=== PATIENT | male | born 1965 | race Caucasian/White ===

== ENCOUNTER 2019-05-12 14:43 | Inpatient (IN) | payer BC ==
[2019-05-12] MEDS ORDERED: MORPHINE 4 MG/ML SYR ONE (15:49)
[2019-05-12] MEDS ORDERED: ONDANSETRON 4 MG/2 ML VIAL ONE (15:50)
[2019-05-12] MEDS ORDERED: NA CHLORIDE 0.9% 1,000 ML ONE (15:50)
[2019-05-12 16:34] LABS: Basophils % 0.4 % (0-1.3); Lymphocytes % 12.8 % (15.3-44.8); MPV 8.8 fL (7.6-11.3); RBC Red Blood Cell Count 5.68 M/uL (4.33-5.43)
[2019-05-12 16:51] LABS: Albumin 3.8 g/dL (3.4-5.0); Bilirubin Direct 0.2 mg/dL (0-0.2); Bilirubin Total 0.7 mg/dL (0.2-1.0); Potassium 3.8 mmol/L (3.5-5.1); Protein, Total 7.3 g/dL (6.4-8.2)
--- NOTE | 2019-05-12 17:53 | RAD REPORT ---
EXAM DESCRIPTION: CT - Abdomen Pelvis W Contrast - 05/12/2019 5:29 pm CLINICAL HISTORY: Abdominal pain vomiting and diarrhea COMPARISON: none. TECHNIQUE: Computed axial tomography of the abdomen pelvis was obtained. 100 cc Isovue-300 was admin istered intravenously. Oral contrast was not requested which limits evaluation of bowel. All CT scans are performed using dose optimization technique as appropriate and may include automated exposure control or mA/KV adjustment according to patient size. FINDINGS: Fatty liver Spleen, pancreas, adrenal and kidneys appear unremarkable. Small right renal cyst There is no evidence of diverticulitis. Normal appendix Small inguinal hernias contain fat Marked thickening of the wall of the descending colon. Moderate thickening of the wall of the transve rse colon. Marked thickening of the wall of the ascending colon IMPRESSION: Marked colitis
--- NOTE | 2019-05-12 18:15 | EDPHYS ---
Physician Documentation [facility] Name: Christiano Kinsey Age: 54 yrs Sex: Male : 1965 Arrival Date: 05/12/2019 Time: 14:43 Bed 18 Private MD: ED Physician Rivera Lozano HPI: 05/12 15:46 This 54 yrs old Male presents to ER via Ambulatory with complaints of kb Dehydration. 15:47 The patient presents to the emergency department with nausea, vomiting, diarrhea, kb abdominal pain. Onset: The symptoms/episode began/occurred 2 day(s) ago. Possible causes: "stomach virus". The symptoms are aggravated by nothing. The symptoms are alleviated by nothing. Associated signs and symptoms: Pertinent positives: abdominal pain, diarrhea, nausea, vomiting. Severity of symptoms: At their worst the symptoms were moderate in the emergency department the symptoms are unchanged. The patient has not experienced similar symptoms in the past. The patient has not recently seen a physician. Pt reports n/v/d and abd cramps for 2 days. States "I'm prone to stomach viruses so anytime one is in the area I get it.". Historical: - Allergies: 14:50 PENICILLINS; la1 - PMHx: 14:50 None; la1 - Immunization history:: Adult Immunizations up to date. - Social history:: Smoking status: Patient/guardian denies using tobacco. - Ebola Screening: : No symptoms or risks identified at this time. ROS: 15:47 Constitutional: Negative for fever, chills, and weight loss, Cardiovascular: Negative kb for chest pain, palpitations, and edema, Respiratory: Negative for shortness of breath, cough, wheezing, and pleuritic chest pain, Back: Negative for injury and pain, : Negative for injury, bleeding, discharge, and swelling, MS/Extremity: Negative for injury and deformity, Skin: Negative for injury, rash, and discoloration, Neuro: Negative for headache, weakness, numbness, tingling, and seizure. 15:47 Abdomen/GI: Positive for nausea, vomiting, and diarrhea, abdominal cramps. Exam: 15:47 Constitutional: This is a well developed, well nourished patient who is awake, alert, kb and in no acute distress. Head/Face: Normocephalic, atraumatic. Neck: Trachea midline, no thyromegaly or masses palpated, and no cervical lymphadenopathy. Supple, full range of motion without nuchal rigidity, or vertebral point tenderness. No Meningismus. Chest/axilla: Normal chest wall appearance and motion. Nontender with no deformity. No lesions are appreciated. Cardiovascular: Regular rate and rhythm with a normal S1 and S2. No gallops, murmurs, or rubs. Normal PMI, no JVD. No pulse deficits. Respiratory: Lungs have equal breath sounds bilaterally, clear to auscultation and percussion. No rales, rhonchi or wheezes noted. No increased work of breathing, no retractions or nasal flaring. Back: No spinal tenderness. No costovertebral tenderness. Full range of motion. Skin: Warm, dry with normal turgor. Normal color with no rashes, no lesions, and no evidence of cellulitis. MS/ Extremity: Pulses equal, no cyanosis. Neurovascular intact. Full, normal range of motion. Neuro: Awake and alert, GCS 15, oriented to person, place, time, and situation. Cranial nerves II-XII grossly intact. Motor strength 5/5 in all extremities. Sensory grossly intact. Cerebellar exam normal. Normal gait. 15:47 Abdomen/GI: Inspection: abdomen appears normal, Bowel sounds: normal, in all quadrants, Palpation: soft, in all quadrants, mild abdominal tenderness, in all quadrants. Vital Signs: 14:51 Resp 16; Temp 98.3; Pulse Ox 98% on R/A; Weight 127.01 kg; Height 6 ft. 2 in. (187.96 la1 cm); 14:52 BP 151 / 100; Pulse 87; la1 15:15 BP 124 / 64; Pulse 70; Resp 20; Temp 98.4; Pulse Ox 100% ; Pain 8/10; vc 16:00 BP 131 / 83; Pulse 75; Pulse Ox 94% ; Pain 8/10; vc 16:06 BP 145 / 78; Pulse 78; Pulse Ox 95% on R/A; vc 17:00 BP 147 / 80; Pulse 63; Pulse Ox 97% ; Pain 5/10; vc 18:00 BP 149 / 76; Pulse 67; Temp 98.7; Pulse Ox 96% ; Pain 7/10; vc 19:00 BP 146 / 81; Pulse 75; Resp 18; Pulse Ox 95% ; wh 20:00 BP 124 / 81; Pulse 68; Resp 18; Pulse Ox 95% ; wh 14:51 Body Mass Index 35.95 (127.01 kg, 187.96 cm) la1 MDM: 15:14 Patient medically screened. kb 15:45 Data reviewed: vital signs, nurses notes. Data interpreted: Pulse oximetry: on room air kb is 98 %. Interpretation: normal. 18:09 Counseling: I had a detailed discussion with the patient and/or guardian regarding: the kb historical points, exam findings, and any diagnostic results supporting the discharge/admit diagnosis, lab results, radiology results, the need for further work-up and treatment in the hospital. ED course: Dr Phan contacted for admission for marked colitis, leukocytosis.. 05/12 15:33 Order name: Basic Metabolic Panel; Complete Time: 16:54 kb 05/12 15:33 Order name: CBC with Diff; Complete Time: 16:43 kb 05/12 15:33 Order name: Hepatic Function; Complete Time: 16:54 kb 05/12 15:33 Order name: Lipase; Complete Time: 16:54 kb 05/12 18:19 Order name: Stool Culture 05/12 18:19 Order name: Fecal Leukocyte Stain 05/12 18:19 Order name: C.difficile 05/12 18:37 Order name: Occult Blood--Ancillary eb 05/12 18:58 Order name: Urinalysis [facility] 05/12 18:58 Order name: CBC with Automated Diff [facility] 05/12 18:58 Order name: CBC with Automated Diff [facility] 05/12 18:58 Order name: Comprehensive Metabolic Panel [facility] 05/12 18:58 Order name: Comprehensive Metabolic Panel [facility] 05/12 18:58 Order name: Magnesium EDMN 05/12 15:33 Order name: IV Saline Lock; Complete Time: 16:50 kb 05/12 15:33 Order name: Labs collected and sent; Complete Time: 16:50 kb 05/12 16:54 Order name: CT Abd/Pelvis - IV Contrast Only; Complete Time: 17:54 kb 05/12 18:58 Order name: Clear Liquid EDMN 05/12 18:58 Order name: Magnesium EDMS 05/12 18:58 Order name: Phosphorus EDMN 05/12 18:58 Order name: Phosphorus EDMS Administered Medications: 16:00 Drug: Zofran 4 mg Route: IVP; Site: right forearm; vc 20:18 Follow up: Response: No adverse reaction; Nausea is decreased 16:00 Drug: morphine 4 mg {Note: pt started complaining that face was burning, face turned vc bright red, stopped administering morphine after half given. After stopping the morphine patient returned to normal color. OCEAN BIOLOGIST notified..} Route: IVP; Site: right forearm; 20:18 Follow up: Response: RASS: Alert and Calm (0) 16:15 Drug: NS 0.9% 1000 ml Route: IV; Rate: 1000 ml; Site: right forearm; vc 20:17 Follow up: Response: No adverse reaction; IV Status: Completed infusion 18:55 Drug: Cipro 400 mg Volume: 200 ml; Route: IVPB; Infused Over: 60 mins; Site: right vc forearm; 20:17 Follow up: Response: No adverse reaction; IV Status: Infusion continued upon admission 18:55 Drug: Flagyl 500 mg Volume: 100 ml; Route: IVPB; Rate: 200 ml/hr; Infused Over: 30 vc mins; Site: right forearm; 20:17 Follow up: Response: No adverse reaction; IV Status: Completed infusion 18:55 Drug: fentaNYL (PF) 25 mcg {Note: verbal order received from OCEAN BIOLOGIST.} Route: IVP; Site: vc right forearm; 20:16 Follow up: Response: No adverse reaction; Pain is decreased; RASS: Alert and Calm (0) Disposition: 05/12/19 18:14 Hospitalization ordered by Aston Hernández for Inpatient Admission. Preliminary diagnosis are Marked Colitis, Nausea and vomiting, Diarrhea, unspecified, Elevated white blood cell count. - Bed requested for Telemetry/MedSurg (Inpatient). - Status is Inpatient Admission. - Condition is Stable. - Problem is new. - Symptoms are unchanged. UTI on Admission? No Addendum: 05/18/2019 08:03 Co-signature as Attending Physician, iRvera Lozano MD I agree with the assessment and r n plan of care. Signatures: Dispatcher [employer] EDStephenie Hale, SACHIN LANZA-Ngozi Barahona RN RN Rivera Lozano MD MD rn Attema, Lee, RN RN [place] [employer] [facility] Dariel Arizmendi Calcote, Kenzie, RN RN vc Corrections: (The following items were deleted from the chart) 05/12 19:51 18:14 Hospitalization Ordered by Aston Hernández DO for Inpatient Admission. Preliminary dw diagnosis is Marked Colitis; Nausea and vomiting; Diarrhea, unspecified; Elevated white blood cell count. Bed requested for Telemetry/MedSurg (Inpatient). Status is Inpatient Admission. Condition is Stable. Problem is new. Symptoms are unchanged. UTI on Admission? No. kb 20:18 19:51 05/12/2019 18:14 Hospitalization Ordered by Aston Hernández DO for Inpatient wh Admission. Preliminary diagnosis is Marked Colitis; Nausea and vomiting; Diarrhea, unspecified; Elevated white blood cell count. Bed requested for Telemetry/MedSurg (Inpatient). Status is Inpatient Admission. Condition is Stable. Problem is new. Symptoms are unchanged. UTI on Admission? No. dw
--- NOTE | 2019-05-12 18:15 | ER ---
Nurse's Notes [facility] Name: Christiano Kinsey Age: 54 yrs Sex: Male : 1965 Arrival Date: 05/12/2019 Time: 14:43 Bed 18 Private MD: Diagnosis: Marked Colitis;Nausea and vomiting;Diarrhea, unspecified;Elevated white blood cell count Presentation: 05/12 14:50 Presenting complaint: Patient states: N/V/D for the last 48 hours, cant keep anything la1 down. Transition of care: patient was not received from another setting of care. Onset of symptoms was May 12, 2019. Risk Assessment: Do you want to hurt yourself or someone else? Patient reports no desire to harm self or others. Initial Sepsis Screen: Does the patient meet any 2 criteria? No. Patient's initial sepsis screen is negative. Does the patient have a suspected source of infection? No. Patient's initial sepsis screen is negative. Care prior to arrival: None. 14:50 Method Of Arrival: Ambulatory la1 14:50 Acuity: PIOTR 3 la1 Historical: - Allergies: 14:50 PENICILLINS; la1 - PMHx: 14:50 None; la1 - Immunization history:: Adult Immunizations up to date. - Social history:: Smoking status: Patient/guardian denies using tobacco. - Ebola Screening: : No symptoms or risks identified at this time. Screenin:30 Abuse screen: Denies threats or abuse. Nutritional screening: Nausea, dry heaving, and vc diarrhea x 48 hours. pt states he has had "about 34-35 bloody water bowel movements". Fall Risk IV access (20 points). 15:30 Tuberculosis screening: No symptoms or risk factors identified. vc Assessment: 15:30 General: Appears uncomfortable, obese, well groomed, Behavior is calm, cooperative. vc Pain: Complains of pain in right lower quadrant and left lower quadrant Pain does not radiate. Pain at worst was 8 out of 10 on a pain scale. Pain began 2-3 days ago. Neuro: Level of Consciousness is awake, alert, obeys commands, Oriented to person, place, time, situation. Cardiovascular: Patient's skin is warm and dry. Respiratory: Airway is patent Respiratory effort is even, unlabored. GI: Reports lower abdominal pain, cramping, diarrhea, bloody stool, nausea, Dry heaving, unable to vomit. GI: Abdomen is round non-distended, obese, Abd is soft Abdomen is tender to palpation in right lower quadrant and left lower quadrant. : No signs and/or symptoms were reported regarding the genitourinary system. Derm: No signs and/or symptoms reported regarding the dermatologic system. Musculoskeletal: Range of motion: intact in all extremities. 19:15 Reassessment: Patient appears in no apparent distress at this time. Patient and/or family updated on plan of care and expected duration. Pain level reassessed. Patient is alert, oriented x 3, equal unlabored respirations, skin warm/dry/pink. 20:12 Reassessment: Patient appears in no apparent distress at this time. No changes from previously documented assessment. Patient and/or family updated on plan of care and expected duration. Pain level reassessed. Patient is alert, oriented x 3, equal unlabored respirations, skin warm/dry/pink. Vital Signs: 14:51 Resp 16; Temp 98.3; Pulse Ox 98% on R/A; Weight 127.01 kg; Height 6 ft. 2 in. (187.96 la1 cm); 14:52 BP 151 / 100; Pulse 87; la1 15:15 BP 124 / 64; Pulse 70; Resp 20; Temp 98.4; Pulse Ox 100% ; Pain 8/10; vc 16:00 BP 131 / 83; Pulse 75; Pulse Ox 94% ; Pain 8/10; vc 16:06 BP 145 / 78; Pulse 78; Pulse Ox 95% on R/A; vc 17:00 BP 147 / 80; Pulse 63; Pulse Ox 97% ; Pain 5/10; vc 18:00 BP 149 / 76; Pulse 67; Temp 98.7; Pulse Ox 96% ; Pain 7/10; vc 19:00 BP 146 / 81; Pulse 75; Resp 18; Pulse Ox 95% ; wh 20:00 BP 124 / 81; Pulse 68; Resp 18; Pulse Ox 95% ; wh 14:51 Body Mass Index 35.95 (127.01 kg, 187.96 cm) la1 ED Course: 14:43 Patient arrived in ED. as 14:50 Triage completed. la1 14:50 Arm band placed on right wrist. la1 15:14 Stephenie Carroll FNP-C [facility]. kb 15:14 Rivera Lozano MD is Attending Physician. kb 15:30 Inserted saline lock: 20 gauge in right forearm, using aseptic technique. Blood vc collected. 16:44 Kenzie Landa, TONJA is Primary Nurse. vc 16:59 No provider procedures requiring assistance completed. vc 17:[address] via wheelchair. vc 17:29 CT Abd/Pelvis - IV Contrast Only In Process Unspecified. EDMS 18:14 Aston Hernández DO is Hospitalizing Provider. kb 19:11 Stool Culture Sent. vc 19:11 Fecal Leukocyte Stain Sent. vc 19:15 Patient has correct armband on for positive identification. Bed in low position. Call light in reach. Side rails up X 1. Pulse ox on. NIBP on. 20:16 Patient admitted, IV remains in place. Administered Medications: 16:00 Drug: Zofran 4 mg Route: IVP; Site: right forearm; vc 20:18 Follow up: Response: No adverse reaction; Nausea is decreased 16:00 Drug: morphine 4 mg {Note: pt started complaining that face was burning, face turned vc bright red, stopped administering morphine after half given. After stopping the morphine patient returned to normal color. TREE TRIMMER notified..} Route: IVP; Site: right forearm; 20:18 Follow up: Response: RASS: Alert and Calm (0) 16:15 Drug: NS 0.9% 1000 ml Route: IV; Rate: 1000 ml; Site: right forearm; vc 20:17 Follow up: Response: No adverse reaction; IV Status: Completed infusion 18:55 Drug: Cipro 400 mg Volume: 200 ml; Route: IVPB; Infused Over: 60 mins; Site: right vc forearm; 20:17 Follow up: Response: No adverse reaction; IV Status: Infusion continued upon admission 18:55 Drug: Flagyl 500 mg Volume: 100 ml; Route: IVPB; Rate: 200 ml/hr; Infused Over: 30 vc mins; Site: right forearm; 20:17 Follow up: Response: No adverse reaction; IV Status: Completed infusion 18:55 Drug: fentaNYL (PF) 25 mcg {Note: verbal order received from TREE TRIMMER.} Route: IVP; Site: vc right forearm; 20:16 Follow up: Response: No adverse reaction; Pain is decreased; RASS: Alert and Calm (0) Outcome: 18:14 Decision to Hospitalize by Provider. kb 20:13 Admitted to Med/surg accompanied by tech, family with patient, via wheelchair, room wh 208, with chart, Report called to Luz Marina Levi RN 20:13 Condition: stable 20:13 Instructed on the need for admit. 20:18 Patient left the ED. Signatures: Dispatcher [employer] EDMS Stephenie Carroll, ROLLING MILL OPERATOR HELPER-C ROLLING MILL OPERATOR HELPER-Lita Charles Lee, RN RN la1 Dariel Arizmendi Kenzie Landa RN RN vc Corrections: (The following items were deleted from the chart) 17:01 16:55 General: Appears uncomfortable, obese, vc vc 17: 16:55 Pain: Complains of pain in abdomen Pain currently is 8 out of 10 on a pain scale. vc Pain began 2-3 days ago. vc 17: 16:55 Respiratory: Airway is patent Respiratory effort is even, unlabored, vc vc 17: 16:55 GI: Reports lower abdominal pain, cramping, diarrhea, bloody stool, nausea, Dry vc heaving vc 17:01 16:55 : No signs and/or symptoms were reported regarding the genitourinary system. vc vc 17:01 16:55 Derm: Skin is intact, Skin is pink, warm \\T\\ dry. vc vc 19:16 19:15 Inserted saline lock: 20 gauge in right forearm, using aseptic technique. Blood vc collected. vc
[2019-05-12] MEDS ORDERED: ZOLPIDEM TARTRATE 5 MG TABLET PO PRN (18:44)
[2019-05-12] MEDS ORDERED: ONDANSETRON 4 MG/2 ML VIAL IV PRN (18:44)
[2019-05-12] MEDS ORDERED: FENTANYL CITR 100 MCG/2 ML ONE (18:46)
[2019-05-12] MEDS ORDERED: CIPROFLOXACIN 400mg IV 400 MG/200 ML BAG IV ONE (18:47)
[2019-05-12] MEDS ORDERED: METRONIDAZOLE 500mg IVPB 500 MG/100 ML BAG IV ONE (18:47)
[2019-05-12] MEDS ORDERED: SODIUM CHLORIDE 0.9% 10ML INJ IV PRN (18:57)
[2019-05-12] MEDS ORDERED: MORPHINE 2 MG/ML SYR IV PRN (18:59)
[2019-05-12] MEDS ORDERED: MORPHINE 4 MG/ML SYR IV PRN (19:00)
[2019-05-12 20:39] VITALS: BMI 37.3
[2019-05-12 21:20] VITALS: O2SAT 97
[2019-05-12] MEDS ORDERED: HYDROMORPHONE HCL 1 MG/ML INJ IV ONE (21:28)
[2019-05-12] MEDS: NA CHLORIDE 0.9% 1,000 ML IV SCH (23:03)
[2019-05-13] MEDS: METRONIDAZOLE 500mg IVPB 500 MG/100 ML BAG IV SCH ×3 (01:49→16:29)
[2019-05-13] MEDS: NA CHLORIDE 0.9% 1,000 ML IV SCH (03:00)
[2019-05-13] MEDS: ACETAMINOPHEN 500 MG TAB PO PRN ×3 (03:48→18:34)
[2019-05-13 04:34] LABS: Urine Appearance CLEAR; Urine Bilirubin NEGATIVE (NEG); Urine Blood 1+ (NEG); Urine Color YELLOW; Urine Glucose NEGATIVE (NEG); Urine Protein NEGATIVE (NEG); Urine Specific Gravity >=1.030 (1.005-1.030); Urine Urobilinogen 0.2 mg/dL (0.2-1.0)
[2019-05-13 04:49] LABS: Urine Microscopic Reflex ORDER UMIC
[2019-05-13 05:27] LABS: Urine Bacteria <20 /HPF (NONE SEEN); Urine Culture Reflex Order NOT NEEDED
--- NOTE | 2019-05-13 05:33 | HP ---
Date of Admission: 05/12/2019 Chief Complaint: Vomiting, diarrhea, and abdominal pain. History Of Present Illness: This patient is a 54-year-old gentleman, who presented for nausea, vomit ing, diarrhea, and abdominal pain. He does not have significant past medical history. The patient r eported that he ate at a local restaurant 5 days ago and then started to have abdominal pain next day . He describes the abdominal pain as crampy. The pain is diffuse, but more in the right lower quadr ant. He also experienced some nausea initially. His appetite was not good. The patient started to experience some vomiting and diarrhea 2 days later. He barely bring food down since then. His abdom inal pain seemed to get worse. He experienced some low-grade fever. No headache. No cough or chest pain. He continued to make good amount of urine. He says diarrhea is watery. No visible blood. T his patient was then presented to the emergency room for diarrhea and abdominal pain. His has b een with him, but he is doing all right. In the ED, his WBC 15.7, hemoglobin . Sodium 135 , potassium 3.8, creatinine 1.14. Liver enzymes unremarkable. Abdominal CT was ordered, which birgit morris marked thickening of the wall of the descending colon thickening of transverse colo n and ascending colon. He was admitted for acute colitis. Past Medical History: Knee surgery. Home Medications: Patient is not taking home medication. Review of Systems: No headache or lightheaded. No syncope. No vision or hearing change. No runny nose or sore throat. No dysphagia. No neck pain. No cough or shortness of breath. No chest pain. No palpitation. No dysuria or hematuria. No numbness or weakness. No confusion. No syncope or fall. For the rest of the system review, please see HPI. Social History: Unremarkable. Patient is not alcoholic. Physical Examination: Vital Signs: Stable. HEENT: PERRLA. EOMI. Neck: No JVD. Supple. Chest: Clear to auscultation. No respiratory distress. No wheezing or rales. Heart: Normal S1, S2. Regular rhythm and rate. No murmur. Abdomen: Soft. Active bowel sound. Tenderness in the lower abdomen, more in the left lower quadran t. Extremities: No edema. No cyanosis. Skin: No rashes. Psychiatric: Mood stable. No anxiety or depression. Neurologic: Awake, alert, oriented x3. Nonfocal. Laboratory Data: WBC 15.7, hemoglobin , platelets 278, neutrophils 77.8%. Sodium 135, pot assium 3.8, creatinine 1.1. Liver enzymes unremarkable. Lipase 67. Abdominal CT as mentioned in the HPI. Assessment And Plan: Acute colitis. This patient experienced nausea, vomiting, and abdominal pain a long with diarrhea. C diff was ordered in the ED. Abdominal CT demonstrates colitis; ascending, tra nsverse, and descending colon. He has not been eating or drinking well for the last few days. I sta rted IV fluids empirically to prevent dehydration. History of making good urine. I started a clear liquid diet. I started IV Cipro and Flagyl empirically for colitis. I will give IV Protonix for gas trointestinal prophylaxis. We will give IV morphine as needed for abdominal pain. This patient may need 1 or 2 days in the hospital. He can be discharged once his symptoms are improved. QT/MODL Voice ID: [id number]
[2019-05-13 06:09] LABS: Absolute Lymphocytes (CBC) 2.3 K/uL (0.7-4.9); Basophils % 0.4 % (0-1.3); Hematocrit 46.9 % (39.6-49.0); Lymphocytes % 15.8 % (15.3-44.8); MPV 8.6 fL (7.6-11.3)
[2019-05-13 06:32] LABS: Albumin 3.2 g/dL (3.4-5.0); Bilirubin Total 0.6 mg/dL (0.2-1.0); Magnesium 2.2 mg/dL (1.8-2.4); Phosphorus 2.5 mg/dL (2.5-4.9); Potassium 4.1 mmol/L (3.5-5.1); Protein, Total 6.3 g/dL (6.4-8.2)
[2019-05-13] MEDS: CIPROFLOXACIN 400mg IV 400 MG/200 ML BAG IV SCH ×2 (07:29→18:34)
[2019-05-13] MEDS ORDERED: HYDROCODONE/APAP 7.5/325 MG TAB PO PRN (08:19)
[2019-05-13] MEDS ORDERED: TRAMADOL HCL 50 MG TAB PO PRN (08:19)
[2019-05-13] MEDS ORDERED: FENTANYL CITR 100 MCG/2 ML IV PRN (08:21)
[2019-05-13] MEDS ORDERED: PANTOPRAZOLE 40 MG INJ IVP SCH (09:00)
[2019-05-13] MEDS: LORATADINE 10 MG TAB PO SCH (09:39)
[2019-05-13] MEDS: NACHLORIDE 0.45% 1,000 ML IV SCH (09:39)
[2019-05-13] MEDS: FLUTICASONE 50MCG NASAL SPRAY NAS SCH (10:23)
[2019-05-13 15:20] LABS: C.diff Antigen/Toxin Ag neg : Tox neg (NEG : NEG)
--- NOTE | 2019-05-13 16:04 | P.PN ---
Subjective Date of Service: 05/13/19 Primary Care Provider: Dr. Weber Chief Complaint: Nausea, vomiting and abdominal pain Subjective: Improving, Other (Patient reports improvement and abdominal pain. No nausea or vomiting noted. Patient had bowel movement this morning.) Physical Examination - Vital Signs Temperature: 98.6 F Blood Pressure: 119/67 Pulse: 68 Respirations: 15 Pulse Ox (%): 96 - Physical Exam General: Alert, In no apparent distress, Oriented x3, Cooperative HEENT: Atraumatic Neck: Supple Respiratory: Clear to auscultation bilaterally, Normal air movement Cardiovascular: Normal pulses, Regular rate/rhythm Gastrointestinal: Normal bowel sounds, Soft and benign, Non-distended, Tenderness (Less abdominal pain noted to the abdomen ) - Studies Laboratory Data (last 24 hrs) 05/13/19 05:36: Sodium 136, Potassium 4.1, BUN 13, Creatinine 1.24, Glucose 105 , Phosphorus 2.5, Magnesium 2.2, Total Bilirubin 0.6, AST 14 L, ALT 27, Alkaline Phosphatase 59 05/13/19 05:36: WBC 14.8 H, Hgb 16.1, Hct 46.9, Plt Count 260 05/12/19 16:04: WBC 15.7 H, Hgb 17.1, Hct 50.0 H, Plt Count 278 05/12/19 16:04: Sodium 135 L, Potassium 3.8, BUN 13, Creatinine 1.14, Glucose 105, Total Bilirubin 0.7, AST 14 L, ALT 32, Alkaline Phosphatase 73, Lipase 67 L Microbiology Data (last 24 hrs): 05/12/19 18:25 Stool Fecal Leukocyte Stain - Final Assessment & Plan Discharge Plan: Home Plan to discharge in: 24 Hours Physician Review Additional Text: Impression: Nausea, vomiting and abdominal pain secondary to Ascending/transverse/ descending colitis Acute renal injury likely dehydration Plan: Nausea, vomiting and abdominal pain secondary to Ascending/transverse/ descending colitis: Patient reports improvement. Will advance diet to full liquid. If tolerates then will advance to soft diet. Continue to monitor abdominal pain. Will provide medication for pain orally. Continue IV antibiotic therapy. So far C diff culture negative. Colitis likely related to recent food eaten from restaurant. Encourage ambulation. Anticipate discharge tomorrow if with clinical improvement. Acute renal injury likely dehydration: Will adjust IV fluids. Encourage ambulation. Encourage oral intake. Time Spent Managing Pts Care (In Minutes): 55
[2019-05-13] MEDS ORDERED: ENOXAPARIN 40 MG/0.4 ML SQ SCH (17:00)
[2019-05-14] MEDS: NACHLORIDE 0.45% 1,000 ML IV SCH ×2 (01:15→05:00)
[2019-05-14] MEDS: METRONIDAZOLE 500mg IVPB 500 MG/100 ML BAG IV SCH ×2 (01:15→08:49)
[2019-05-14] MEDS ORDERED: PANTOPRAZOLE 40MG TABLET PO SCH (06:30)
[2019-05-14] MEDS: ACETAMINOPHEN 500 MG TAB PO PRN (07:26)
[2019-05-14] MEDS: CIPROFLOXACIN 400mg IV 400 MG/200 ML BAG IV SCH (07:45)
[2019-05-14] MEDS: LORATADINE 10 MG TAB PO SCH (08:46)
[2019-05-14] MEDS: FLUTICASONE 50MCG NASAL SPRAY NAS SCH (08:47)
--- NOTE | 2019-05-14 09:23 | P.DS ---
Admission Date: 05/13/19 Discharge Date: 05/14/19 Primary Care Provider: Dr. Weber([place], [place]) Disposition: ROUTINE DISCHARGE Discharge Condition: GOOD Reason for Admission: Nausea, vomiting and abdominal pain Consultations: None Procedures: CT Scan: FINDINGS: Fatty liver Spleen, pancreas, adrenal and kidneys appear unremarkable. Small right renal cyst There is no evidence of diverticulitis. Normal appendix Small inguinal hernias contain fat Marked thickening of the wall of the descending colon. Moderate thickening of the wall of the transverse colon. Marked thickening of the wall of the ascending colon IMPRESSION: Marked colitis Medical Problem list: Nausea, vomiting and abdominal pain secondary to Ascending/transverse/ descending colitis Acute renal injury likely dehydration CT scan showing fatty liver, small renal right cyst, and small inguinal hernias Chronic seasonal allergies Obesity, BMI 37 Brief History of Present Illness: 54-year-old male presented with nausea, vomiting, diarrhea and abdominal pain. This all started after he ate at a restaurant 5 days ago. He experienced abdominal cramping. It got worse. He continued to have diarrhea, and vomiting. He presented to the ER for further evaluation. CT scan revealed marked thickening of the wall of the ascending, transverse and descending colon. Patient admitted for colitis. Hospital Course: Patient presented with nausea, vomiting and abdominal pain secondary to ascending/transfer/descending colitis. This occurred after eating food at a restaurant. Patient was admitted for treatment. Patient responded well to IV antibiotic therapy and IV fluids. C diff culture negative. At discharge he is without significant abdominal pain, nausea and vomiting. At discharge patient will continue with Cipro 500 mg twice daily and Flagyl 500 mg 3 times a day for 10 days. Education on colitis will be provided. Patient will continue with a GI soft diet and then advance to a heart healthy as tolerated. Patient plans to establish care in the local area. Recommend to follow up with a PCP. Will also recommend to follow up with GI in the next 2-4 weeks as the patient will require colonoscopy in the near future to follow up this episode of colitis. CT scan also revealed fatty liver, right renal small cyst, and bilateral inguinal hernias. This has remained stable. Education on fatty liver will be provided. No heavy lifting, pushing or pulling recommended at this time. Patient with chronic seasonal allergies. At discharge he will continue with his medications including Flonase and Claritin. Dietary lifestyle modification education will be provided. Vital Signs/Physical Exam: Temp Pulse Resp BP Pulse Ox 97.6 F 51 18 138/65 90 L 05/14/19 04:00 05/14/19 04:00 05/14/19 04:00 05/14/19 04:00 05/14/19 04:00 General: Alert, In no apparent distress, Oriented x3, Cooperative HEENT: Atraumatic Neck: Supple Respiratory: Clear to auscultation bilaterally, Normal air movement Cardiovascular: Normal pulses, Regular rate/rhythm Gastrointestinal: Normal bowel sounds, Soft and benign, Non-distended, No tenderness, No masses, No rebound, No guarding Musculoskeletal: No erythema, No tenderness, No warmth Integumentary: No tenderness/swelling, No erythema, No warmth, No cyanosis Neurological: Normal speech, Normal strength at 5/5 x4 extr, Normal tone, Normal affect Laboratory Data at Discharge: WBC 14.8 K/uL (4.3-10.9) H 05/13/19 05:36 Hgb 16.1 g/dL (13.6-17.9) 05/13/19 05:36 Hct 46.9 % (39.6-49.0) 05/13/19 05:36 Plt Count 260 K/uL (152-406) 05/13/19 05:36 Sodium 136 mmol/L (136-145) 05/13/19 05:36 Potassium 4.1 mmol/L (3.5-5.1) 05/13/19 05:36 BUN 13 mg/dL (7-18) 05/13/19 05:36 Creatinine 1.24 mg/dL (0.55-1.3) 05/13/19 05:36 Glucose 105 mg/dL (74-106) 05/13/19 05:36 Phosphorus 2.5 mg/dL (2.5-4.9) 05/13/19 05:36 Magnesium 2.2 mg/dL (1.8-2.4) 05/13/19 05:36 Total Bilirubin 0.6 mg/dL (0.2-1.0) 05/13/19 05:36 AST 14 U/L (15-37) L 05/13/19 05:36 ALT 27 U/L (12-78) 05/13/19 05:36 Alkaline Phosphatase 59 U/L (45-117) 05/13/19 05:36 Lipase 67 U/L (73-393) L 05/12/19 16:04 Home Medications: Fluticasone [Flonase 50MCG Nasal [place]*] 2 sprays LESLIE DAILY 05/12/19 Loratadine [Claritin*] 10 mg PO DAILY 05/12/19 Ciprofloxacin HCl [Cipro 500 MG Tablet] 500 mg PO BID #20 tab 05/14/19 metroNIDAZOLE [Flagyl] 500 mg PO Q8H #30 tablet 05/14/19 New Medications: Ciprofloxacin HCl [Cipro 500 MG Tablet] 500 mg PO BID #20 tab metroNIDAZOLE [Flagyl] 500 mg PO Q8H #30 tablet Patient Discharge Instructions: 1. Patient plans to establish care in the local area for follow up hospitalization. 2. Patient presented with nausea, vomiting and abdominal pain secondary to ascending/transfer/descending colitis. This occurred after eating food at a restaurant. Patient was admitted for treatment. Patient responded well to IV antibiotic therapy and IV fluids. C diff culture negative. At discharge he is without significant abdominal pain, nausea and vomiting. At discharge patient will continue with Cipro 500 mg twice daily and Flagyl 500 mg 3 times a day for 10 days. Education on colitis will be provided. Patient will continue with a GI soft diet and then advance to a heart healthy as tolerated. Patient plans to establish care in the local area. Recommend to follow up with a PCP. Will also recommend to follow up with GI in the next 2-4 weeks as the patient will require colonoscopy in the near future to follow up this episode of colitis. 3. CT scan also revealed fatty liver, right renal small cyst, and bilateral inguinal hernias. This has remained stable. Education on fatty liver will be provided. No heavy lifting, pushing or pulling recommended at this time. 4. Patient with chronic seasonal allergies. At discharge he will continue with his medications including Flonase and Claritin. 5. Dietary lifestyle modification education will be provided. Please provide Diet: GI soft diet then advance to heart healthy Activity: Ad lauryn Time spent managing pt's care (in minutes): 55
[2019-05-14 09:44] VITALS: BP 120/66; TEMP 98.2
== END 2019-05-14 10:00 | disposition home or self-care (01) | DRG 392 ==
LOC: EDSEX 14:43 → ER 14:43 → ERHOLD 18:45 → 2ND 20:10 → OBSVTOIN 05-13 13:14
PROVIDERS: ADMIT Internal Medicine; ATTEND Internal Medicine
DX: K52.89 Other specified noninfective gastroenteritis and colitis (principal); N17.9 Acute kidney failure, unspecified; E86.0 Dehydration; K76.0 Fatty (change of) liver, not elsewhere classified; N28.1 Cyst of kidney, acquired; K40.90 Unilateral inguinal hernia, without obstruction or gangrene, not specified as recurrent; J30.2 Other seasonal allergic rhinitis; E66.9 Obesity, unspecified; Z68.37 Body mass index [BMI] 37.0-37.9, adult
CPT/HCPCS: 36415; 74177; 80048; 80053; 80076; 81003; 81015; 83690; 83735; 84100; 85025; 87045; 87046; 87177; 87209; 87324; 87449; 89055; 96361; 96365; 96368; 96375; 99285; C9113; G0378; J0744; J1170; J1650; J2405; J3010; J7030; Q9967

== ENCOUNTER 2021-01-21 07:09 | Emergency (ER) | payer BC ==
[2021-01-21] MEDS ORDERED: METHYLPREDNISOLONE 125 MG INJ ONE (09:26)
[2021-01-21] MEDS ORDERED: HYDROCODONE/APAP 10/325 TAB ONE (09:27)
[2021-01-21] MEDS ORDERED: KETOROLAC 30 MG/ML INJ ONE (09:27)
--- NOTE | 2021-01-21 09:35 | RAD REPORT ---
EXAM DESCRIPTION: CT - Spine Lumbar Wo Con - 01/21/2021 8:59 am CLINICAL HISTORY: LOWER BACK PAIN, lifting injury COMPARISON: None. TECHNIQUE: Thin section axial imaging of the lumbar spine was performed. Sagittal and coronal recon struction images were generated and reviewed. All CT scans are performed using dose optimization technique as appropriate and may include automated exposure control or mA/KV adjustment according to patient size. FINDINGS: Lumbar bodies are normal in height and alignment. No fracture present. No pars defects are seen. Mild facet joint degenerative changes are present at L4-5 and L5-S1. No paraspinal mass identi fied. No pathologic bone process. L1-2 minimal disc bulge with no canal or foramen abnormality. L2-3 disc bulge and endplate spurring changes across the central canal and into each exit foramen. No central spinal stenosis or significant foraminal encroachment. L3-4 prominent disc bulge and endplate spurring changes in the right exit foramen and far lateral ext raforaminal space. No foraminal stenosis present. The protruding disc material in the far lateral ext raforaminal space could have mass effect on the right L3 nerve root though no radicular symptoms were detailed. No central spinal stenosis. L4-5 disc bulge changes are present. Central canal detail is inherently limited on CT imaging. There is a questionable small herniation of disc material extending inferiorly along the posterior wall L5. This is difficult to fully visualize and is nearly isodense to adjacent structures. Foraminal disc b ulge changes are mild. There is no central spinal stenosis suspected. L5-S1 disc space narrowing is present. Disc bulge and endplate spurring changes are seen in each exit foramen, left worse than right. No central spinal stenosis. Left foraminal stenosis is evident. No l eft lower extremity radicular symptoms were detailed. IMPRESSION: No compression fracture or acute vertebral body finding identifiable. CT central canal detail is inherently limited. There are subtle findings suggesting inferiorly direct ed disc herniation at L4-5. L5-S1 left foraminal stenosis from disc bulge and endplate spurring. There is significant protruding disc material on the right at L3-4. Right L3 and left L5 radicular symptoms would be possible though none were detailed in the available history.
[2021-01-21 11:22] LABS: Urine Blood 1+ (Negative); Urine Glucose Negative (Negative); Urine Protein Negative (Negative); Urine Specific Gravity 1.025 (1.005-1.030); Urine pH 5.5 (5.0-7.0)
--- NOTE | 2021-01-21 11:31 | EDPHYS ---
Physician Documentation [facility] Name: Christiano Kinsey Age: 55 yrs Sex: Male : 1965 Arrival Date: 01/21/2021 Time: 07:12 Bed 13 Private MD: ED Physician Diaz Coles HPI: 01/21 08:37 This 55 yrs old Male presents to ER via Ambulatory with complaints of Low kdr Back Pain. 08:37 The patient presents with pain that is acute, and decreased range of motion, and an kdr injury, and tenderness. The symptoms are located in the low back. The pain does not radiate. The problem was sustained when lifting heavy object. Onset: The symptoms/episode began/occurred suddenly, last week. Modifying factors: The patient symptoms are alleviated by remaining still, the patient symptoms are aggravated by movement, standing, Looking or reaching to the left. Associated signs and symptoms: The patient has no apparent associated signs or symptoms. Severity of symptoms: At their worst the symptoms were severe, in the emergency department the symptoms are unchanged. The patient has experienced similar episodes in the past, multiple times, Patient has had multiple injuries in the past of his back. He has been taking Flexeril and 800 mg of Motrin for the pain from a prior recent back injury. This regimen has not been helpful to this particular injury.. The patient has not recently seen a physician. Patient denies any pain with urination or loss of control of urine or bowel. He denies any pain radiation to his lower extremities. At rest he has minimal pain. With standing or movement, he has pain midline low back. Historical: - Allergies: 08:14 PENICILLINS; iw 08:14 Morphine; adverse reaction, made him feel flush; iw - Home Meds: 08:14 None [Active]; iw - PMHx: 08:14 None; iw - PSHx: 08:14 left knee; cardiac ablation; iw - Immunization history:: Client reports having NOT received the Covid vaccine. - Social history:: Smoking status: Patient denies any tobacco usage or history of. ROS: 08:37 Constitutional: Negative for fever, chills, and weight loss, Eyes: Negative for injury, kdr pain, redness, and discharge, Neck: Negative for injury, pain, and swelling, Cardiovascular: Negative for chest pain, palpitations, and edema, Respiratory: Negative for shortness of breath, cough, wheezing, and pleuritic chest pain, Abdomen/GI: Negative for abdominal pain, nausea, vomiting, diarrhea, and constipation, : Negative for injury, bleeding, discharge, and swelling, MS/Extremity: Negative for injury and deformity, Skin: Negative for injury, rash, and discoloration, Neuro: Negative for headache, weakness, numbness, tingling, and seizure activity. Psych: Negative for depression, anxiety, suicide ideation, homicidal ideation, and hallucinations, Allergy/Immunology: Negative for hives, rash, and allergies, Endocrine: Negative for neck swelling, polydipsia, polyuria, polyphagia, and marked weight changes, Hematologic/Lymphatic: Negative for swollen nodes, abnormal bleeding, and unusual bruising. 08:37 Back: Positive for decreased range of motion, pain at rest, pain with movement, of the lumbar area and low back area. Exam: 08:37 Constitutional: This is a well developed, well nourished patient who is awake, alert, kdr and in no acute distress. Head/Face: Normocephalic, atraumatic. Eyes: Pupils equal round and reactive to light, extra-ocular motions intact. Lids and lashes normal. Conjunctiva and sclera are non-icteric and not injected. Cornea within normal limits. Periorbital areas with no swelling, redness, or edema. Neck: Trachea midline, no thyromegaly or masses palpated, and no cervical lymphadenopathy. Supple, full range of motion without nuchal rigidity, or vertebral point tenderness. No Meningismus. Chest/axilla: Normal chest wall appearance and motion. Nontender with no deformity. No lesions are appreciated. Cardiovascular: Regular rate and rhythm with a normal S1 and S2. No gallops, murmurs, or rubs. Normal PMI, no JVD. No pulse deficits. Respiratory: Lungs have equal breath sounds bilaterally, clear to auscultation and percussion. No rales, rhonchi or wheezes noted. No increased work of breathing, no retractions or nasal flaring. Abdomen/GI: Soft, non-tender, with normal bowel sounds. No distension or tympany. No guarding or rebound. No evidence of tenderness throughout. Skin: Warm, dry with normal turgor. Normal color with no rashes, no lesions, and no evidence of cellulitis. MS/ Extremity: Pulses equal, no cyanosis. Neurovascular intact. Full, normal range of motion. Neuro: Awake and alert, GCS 15, oriented to person, place, time, and situation. Cranial nerves II-XII grossly intact. Motor strength 5/5 in all extremities. Sensory grossly intact. Cerebellar exam normal. Normal gait. Psych: Awake, alert, with orientation to person, place and time. Behavior, mood, and affect are within normal limits. 08:37 Back: pain, that is mild, of the lumbar area and low back area. Vital Signs: 09:38 BP 124 / 84; Pulse 57; Resp 18; Temp 98.0; Pulse Ox 99% on R/A; Weight 134.26 kg; em1 Height 6 ft. 2 in. (187.96 cm); Pain 5/10; 10:00 BP 115 / 72; Pulse 58; Resp 16; Pulse Ox 97% ; vg1 10:30 BP 107 / 68; Pulse 57; Resp 16; Pulse Ox 95% ; vg1 11:30 BP 131 / 80; Pulse 62; Resp 16; Pulse Ox 99% ; vg1 09:38 Body Mass Index 38.00 (134.26 kg, 187.96 cm) em1 MDM: 08:37 Data reviewed: vital signs, nurses notes, radiologic studies. Counseling: I had a kdr detailed discussion with the patient and/or guardian regarding: the historical points, exam findings, and any diagnostic results supporting the discharge/admit diagnosis, radiology results, the need for outpatient follow up. 11:31 Patient medically screened. [facility] 01/21 11:21 Order name: Urine Dipstick-Ancillary EDIA 01/21 08:35 Order name: CT Lumbar Spine Wo Con; Complete Time: 09:38 kdr 01/21 08:35 Order name: Urine Dipstick-Ancillary (obtain specimen); Complete Time: 11:22 kdr Administered Medications: 09:11 Drug: SOLU-Medrol (methylPrednisoLONE) 125 mg Route: IVP; Site: right antecubital; iw 11:22 Follow up: Response: No adverse reaction vg1 09:11 Drug: Ketorolac 15 mg Route: IVP; Site: right antecubital; iw 11:22 Follow up: Response: No adverse reaction; Pain is unchanged, physician notified vg1 09:53 Drug: Robaxin (methocarbamol) 1 grams Route: IVPB; Infused Over: 1 hrs; Site: right iw antecubital; 11:22 Follow up: Response: No adverse reaction; IV Status: Completed infusion; IV Intake: vg1 100ml 11:46 Not Given (Patient Refused): Elizabeth (HYDROcodone-acetaminophen) 10 mg-325 mg 1 tabs PO vg1 once; RASS on ADMIN: Combtv4, Very Agttd3, Agttd2, Rstlss1, AlertClm0, Drwsy-1, Lt Sdtn-2, Mod Sdtn-3, Dp Sdtn-4, UnArsble-5 Disposition Summary: 01/21/21 11:31 Discharge Ordered Location: Home kdr Problem: new kdr Symptoms: have improved kdr Condition: Stable kdr Diagnosis - Low back pain kdr - 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 kdr Followup: kdr - With: Devon Bae MD - When: 2 - 3 days - Reason: If symptoms return, Further diagnostic work-up, Recheck today's complaints, Continuance of care, Re-evaluation by your physician Discharge Instructions: - Discharge Summary Sheet kdr - Acute Back Pain, Adult kdr - Musculoskeletal Pain kdr - Back Exercises, [id number] kdr Forms: - Medication Reconciliation Form kdr - Thank You Letter kdr - Prescription Opioid Use kdr - Work release form bd Prescriptions: - acetaminophen-codeine 300-15 mg Oral tablet - take 2 tablet by ORAL route every 4-6 hours As needed; 20 tablet; Refills: 0, kdr Product Selection Permitted - methocarbamol 750 mg Oral tablet - take 2 tablet by ORAL route 4 times per day for 5 days; 40 tablet; Refills: 0, kdr Product Selection Permitted - Ibuprofen 800 mg Oral Tablet - take 1 tablet by ORAL route every 8 hours As needed take with food; 30 tablet; kdr Refills: 0, Product Selection Permitted - Medrol (Jose) 4 mg Oral Tablets, Dose Pack - take 1 tablet by ORAL route as directed - follow package instructions; 1 kdr packet; Refills: 0, Product Selection Permitted Signatures: Dispatcher [employer] Diaz Desai MD MD kdr Codi Baez RN RN iw Keyanna Holland RN vg1
--- NOTE | 2021-01-21 11:31 | ER ---
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 Coronavirus screen: At this time, the client does not indicate any symptoms associated with coronavirus-19. Ebola Screen: Patient negative for fever greater than or equal to 101.5 degrees Fahrenheit, and additional compatible Ebola Virus Disease symptoms Patient denies exposure to infectious person. Patient denies travel to an Ebola-affected area in the 21 days before illness onset. No symptoms or risks identified at this time. Initial Sepsis Screen: Does the patient meet any 2 criteria? No. Patient's initial sepsis screen is negative. Does the patient have a suspected source of infection? No. Patient's initial sepsis screen is negative. Risk Assessment: Do you want to hurt yourself or someone else? Patient reports no desire to harm self or others. Onset of symptoms was January 16, 2021. 08:13 Method Of Arrival: Ambulatory iw 08:13 Acuity: PIOTR 3 iw Historical: - Allergies: 08:14 PENICILLINS; iw 08:14 Morphine; adverse reaction, made him feel flush; iw - Home Meds: 08:14 None [Active]; iw - PMHx: 08:14 None; iw - PSHx: 08:14 left knee; cardiac ablation; iw - Immunization history:: Client reports having NOT received the Covid vaccine. - Social history:: Smoking status: Patient denies any tobacco usage or history of. Screenin:17 Abuse screen: Denies threats or abuse. Denies injuries from another. Nutritional iw screening: No deficits noted. Tuberculosis screening: No symptoms or risk factors identified. Fall Risk None identified. Assessment: 08:16 General: Appears uncomfortable, Behavior is calm, cooperative. Pain: Complains of pain iw in lumbar area and sacrum Pain radiates to left low back Pain currently is 9 out of 10 on a pain scale. Neuro: Level of Consciousness is awake, alert, obeys commands, Oriented to person, place, time, situation, Moves all extremities. Cardiovascular: Patient's skin is warm and dry. Respiratory: Respiratory effort is even, unlabored, Respiratory pattern is regular. Derm: Skin is intact. Musculoskeletal: Range of motion: intact in all extremities, Reports pain in back. 10:00 Reassessment: Patient appears in no apparent distress at this time. Patient and/or vg1 family updated on plan of care and expected duration. Pain level reassessed. Patient is alert, oriented x 3, equal unlabored respirations, skin warm/dry/pink. Pt states pain of 7/10. 11:22 Reassessment: Patient appears in no apparent distress at this time. Patient and/or vg1 family updated on plan of care and expected duration. Pain level reassessed. Patient is alert, oriented x 3, equal unlabored respirations, skin warm/dry/pink. Pt stated pain is back to 9/10. Provider notified. Pt stated does not want to take Banks, due to a reaction of itching. Vital Signs: 09:38 BP 124 / 84; Pulse 57; Resp 18; Temp 98.0; Pulse Ox 99% on R/A; Weight 134.26 kg; em1 Height 6 ft. 2 in. (187.96 cm); Pain 5/10; 10:00 BP 115 / 72; Pulse 58; Resp 16; Pulse Ox 97% ; vg1 10:30 BP 107 / 68; Pulse 57; Resp 16; Pulse Ox 95% ; vg1 11:30 BP 131 / 80; Pulse 62; Resp 16; Pulse Ox 99% ; vg1 09:38 Body Mass Index 38.00 (134.26 kg, 187.96 cm) em1 ED Course: 07:12 Patient arrived in ED. wm 08:09 Diaz Coles MD is Attending Physician. kdr 08:13 Codi Baez, RN is Primary Nurse. iw 08:14 Triage completed. iw 08:16 Arm band placed on. iw 08:59 CT Lumbar Spine Wo Con In Process Unspecified. EDMS 09:40 Pillow given. Head of bed elevated. em1 10:00 Patient has correct armband on for positive identification. Bed in low position. Call vg1 light in reach. Side rails up X 1. Adult w/ patient. 10:01 Primary Nurse role handed off by Codi Baez RN vg1 10:01 Keyanna Holland, RN is Primary Nurse. vg1 11:29 Devon Bae MD is Referral Physician. kdr 11:52 No provider procedures requiring assistance completed. IV discontinued, intact, vg1 bleeding controlled, No redness/swelling at site. Pressure dressing applied. Administered Medications: 09:11 Drug: SOLU-Medrol (methylPrednisoLONE) 125 mg Route: IVP; Site: right antecubital; iw 11:22 Follow up: Response: No adverse reaction vg1 09:11 Drug: Ketorolac 15 mg Route: IVP; Site: right antecubital; iw 11:22 Follow up: Response: No adverse reaction; Pain is unchanged, physician notified vg1 09:53 Drug: Robaxin (methocarbamol) 1 grams Route: IVPB; Infused Over: 1 hrs; Site: right iw antecubital; 11:22 Follow up: Response: No adverse reaction; IV Status: Completed infusion; IV Intake: vg1 100ml 11:46 Not Given (Patient Refused): Banks (HYDROcodone-acetaminophen) 10 mg-325 mg 1 tabs PO vg1 once; RASS on ADMIN: Combtv4, Very Agttd3, Agttd2, Rstlss1, AlertClm0, Drwsy-1, Lt Sdtn-2, Mod Sdtn-3, Dp Sdtn-4, UnArsble-5 Intake: 11:22 IV: 100ml; Total: 100ml. vg1 Outcome: 11:31 Discharge ordered by . kdr 11:52 Discharged to home ambulatory, with family. vg1 11:52 Condition: stable 11:52 Discharge instructions given to patient, family, Instructed on discharge instructions, follow up and referral plans. medication usage, Demonstrated understanding of instructions, follow-up care, medications, Prescriptions given X 4. 11:52 Patient left the ED. vg1 Signatures: Dispatcher [employer] EDMS Diaz Coles MD MD [facility] Codi Baez RN RN iw [place] em1 Keyanna Holland RN RN 1 Jeny Rosa
[2021-01-21 11:57] VITALS: TEMP 98
[2021-01-21 12:02] VITALS: BP 131/80; O2SAT 99
== END 2021-01-21 11:52 | disposition home or self-care (01) ==
LOC: ER 07:09
DX: M51.36 Other intervertebral disc degeneration, lumbar region (principal); Z88.0 Allergy status to penicillin; Z88.5 Allergy status to narcotic agent
CPT/HCPCS: 81003; 72131; J2930; J2800